=== PATIENT | female | born 1990 | race African-American/Black ===

== ENCOUNTER 2018-09-14 16:04 | Inpatient (IN) | payer OTHER ==
[2018-09-14 18:41] VITALS: BMI 25.2
--- NOTE | 2018-09-14 19:25 | HP ---
"CIWA Score Nausea/Vomitin-Mild Nausea/No Vomiting Muscle Tremors: None Anxiety: 1-Mildly Anxious Agitation: 1-Slight > Activity Paroxysmal Sweats: No Perspiration Orientation: 0-Oriented Tacttile Disturbances: 0-None Auditory Disturbances: 0-None Visual Disturbances: 0-None Headache: 2-Mild ((L) temporal area.) CIWA-Ar Total Score: 5 - Admission Criteria OASAS Guidelines: Admission for Medically Managed Detox: Requires at least one of the followin. CIWA greater than 12 2. Seizures within the past 24 hours 3. Delirium tremens within the past 24 hours 4. Hallucinations within the past 24 hours 5. Acute intervention needed for co occurring medical disorder 6. Acute intervention needed for co occurring psychiatric disorder 7. Severe withdrawal that cannot be handled at a lower level of care (continued vomiting, continued diarrhea, abnormal vital signs) requiring intravenous medication and/or fluids 8. Patient presents the following: None of the above Admission Criteria Met: Admission criteria not met Admission ROS [facility] Chief Complaint: Here for treatment for alcohol, cocaine and marijuana Allergies/Adverse Reactions: Allergies Allergy/AdvReac Type Severity Reaction Status Date / Time No Known Allergies Allergy Verified 09/14/18 18:29 History of Present Illness: 27 yo presents with hx alcohol, marijuana, and cocaine use disorder requesting detox. Hospitalized 09/12/18 @ [facility] for detox and mental health reasons. States discharged today and here for continuity of care. States received no medications while hospitalized. Has tried stopping on own but unable to maintain sobriety longer than 3 days. Alcohol use since age 24. States current use is 1-2 pints daily x past 6 months. Last drink 09/12. Marijuana use since age 13. Last use 09/12. Cocaine use since age 24. Last use 09/12. Utox: SCOT, THC HCG: Neg Presently c/o nausea, headache, rocking, and increased anxiety. Denies seizures or overdoses. Hx: Blackouts - 09/10/18. PMHx: Visual changes, SOB w/ exertion, PPD+ w/ tx w/ INH & B6 @ age 8/10. MHHx: Insomnia, anxiety, depression, mood disorder. Last took Seroquel 250 mg PO earlier today. Last took unknown medications 3 months ago. Denies thoughts of harming self or others. Encouraged to obtain a PCP and MH Provider upon discharge. Search Terms: Leigh Newsome, 1990 Search Date: 09/14/2018 07:27:51 PM The Drug Utilization Report below displays all of the controlled substance prescriptions, if any, that your patient has filled in the last twelve months. The information displayed on this report is compiled from pharmacy submissions to the Department, and accurately reflects the information as submitted by the pharmacies. This report was requested by: Lizbeth Hawk | Reference #: [id number] There are no results for the search terms that you entered. Search Terms: Leigh Newsome, 1990 Search Date: 09/14/2018 07:28:29 PM States Searched: [place], [place], [place], [place], [place], [place], [place] The Drug Utilization Report below displays the controlled substance prescriptions, if any, that were dispensed in the indicated state(s). The information displayed on this report is compiled from requests submitted to other states' PMPs, and accurately reflects the information as returned by them. Blank guevara indicate data not provided by other state. This report was requested by: Lizbeth Hawk | Reference #: [id number] Exam Limitations: No Limitations - Ebola screening Have you traveled outside of the country in the last 21 days: No Have you had contact with anyone from an Ebola affected area: No Have you been sick,other than usual withdrawal symptoms: No (Denies recent exposure to measles) Do you have a fever: No - Review of Systems Constitutional: Changes in sleep (Dificulty falling asleep. States was taking Seroquel.) EENT: reports: Blurred Vision (Occ blurred vision and color distortion in (K) eye), Other (Deviated nasal septum) Respiratory: reports: SOB with Exertion (Stairs, walking) Cardiac: reports: No Symptoms Reported GI: reports: Nausea (X past 6 hours), Indigestion (Acid reflux - controlled w/ diet) : reports: No Symptoms Reported Musculoskeletal: reports: No Symptoms Reported Integumentary: reports: No Symptoms Reported Neuro: reports: Headache (Mild (L) temporal) Endocrine: reports: No Symptoms Reported Hematology: reports: Anemia (Low iron and vitamin d) Psychiatric: reports: Judgement Intact, Orientated x3, Anxious, Depressed ( Denies thoughts of harming self or others.) Patient History - PPD History Previous Implant?: Yes Documented Results: Positive w/o proof (States treated w/ INH & B6 @ age 8/10.) Implanted On Prior R Admission?: No PPD to be Administered?: No - Reproductive History Patient is a Female of Child Bearing Age (11 -55 yrs old): Yes Last Menstrual Period: 08/29/18 Patient : No - Smoking Cessation Smoking history: Current every day smoker Have you smoked in the past 12 months: Yes Aproximately how many cigarettes per day: 10 Hx Chewing Tobacco Use: No Initiated information on smoking cessation: Yes 'Breaking Loose' booklet given: 09/14/18 - Substance & Tx. History Hx Alcohol Use: Yes Hx Substance Use: Yes Substance Use Type: Alcohol, Cocaine, Marijuana Hx Substance Use Treatment: No (Tried stopping on own,) - Substances abused Cocaine Substance route: Inhalation Frequency: 1-3 times last 30 days Amount used: 60 dollars Age of first use: 24 Date of last use: 09/12/18 Marijuana/Hashish Substance route: Smoking Frequency: 3-6 times per week Amount used: 100 dollars Age of first use: 13 Date of last use: 09/12/18 Alcohol Substance route: Oral Frequency: Daily Amount used: 1 to 2 pint of anything' Age of first use: 24 Date of last use: 09/12/18 Admission Physical Exam [facility] - Vital Signs Vital Signs: Vital Signs - 24 hr 09/14/18 18:26 Temperature 97.7 F Pulse Rate 85 Respiratory 20 Rate - Physical General Appearance: Yes: Nourished, Anxious HEENTM: Yes: EOMI, Hearing grossly Normal, Normocephalic, Normal Voice, MACK, Pharynx Normal, Other (perforated nasal septum) Respiratory: Yes: Lungs Clear (O2 Sat = 99), Normal Breath Sounds, No Respiratory Distress Neck: Yes: No masses,lesions,Nodules, Supple Breast: Yes: Breast Exam Deferred Cardiology: Yes: Regular Rhythm, Regular Rate, S1, S2 Abdominal: Yes: Non Tender, Soft, Hernia (Slight supra-umbilical bulge - soft, reducible) Genitourinary: Yes: Within Normal Limits Back: Yes: Normal Inspection Musculoskeletal: Yes: full range of Motion, Gait Steady Extremities: Yes: Normal Capillary Refill, Normal Range of Motion Neurological: Yes: 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 NML intact, Fully Oriented, Alert, Motor Strength 5/5 Integumentary: Yes: Normal Color, Dry, Warm Lymphatic: Yes: Within Normal Limits - Diagnostic (1) Severe alcohol use disorder, in early remission Current Visit: Yes Status: Acute (2) Cannabis dependence, uncomplicated Current Visit: Yes Status: Chronic (3) Nicotine dependence, uncomplicated Current Visit: Yes Status: Chronic Qualifiers: Nicotine product type: cigarettes Qualified Code(s): F17.210 - Nicotine dependence, cigarettes, uncomplicated (4) Cocaine dependence, uncomplicated Current Visit: Yes Status: Chronic (5) Abdominal hernia Current Visit: Yes Status: Chronic Qualifiers: Hernia type: unspecified Obstruction and gangrene presence: without obstruction or gangrene Recurrence: not specified as recurrent Qualified Code(s): K46.9 - Unspecified abdominal hernia without obstruction or gangrene (6) History of positive PPD Current Visit: Yes Status: Chronic Cleared for Admission [facility] - Detox or Rehab Claeared for Rehab Admission: Yes Breathalyzer - Breathalyzer Breathalyzer: 0 Urine Drug Screen - Test Device Lot number: [id number] Expiration date: 07/04/20 - Control Is test valid?: Yes - Results Drug screen NEGATIVE: No Urine drug screen results: THC-Marijuana, SCOT-Cocaine Inpatient Rehab Admission - Rehab Decision to Admit Inpatient rehab admission?: Yes - Initial Determination Are CD services needed?: Yes Free of communicable disease: Yes Not in need of hospitalization: Yes - Rehab Admission Criteria Previous failed treatment: Yes Poor recovery environment: Yes Comorbidities: Yes Lacks judgement: No Patient is meeting Inpatient Rehab admission criteria:: Yes"
[2018-09-14] MEDS ORDERED: ACETAMINOPHEN 325 MG TABLET (FP) PO PRN (20:17)
[2018-09-14] MEDS ORDERED: P-EPHED 60MG/TRIPROLIDI 2.5MG TABLET PO PRN (20:17)
[2018-09-14] MEDS ORDERED: MENTHOL/PHENOL 1 EACH UD MM PRN (20:17)
[2018-09-14] MEDS ORDERED: MAG HYDROX/AL HYDROX/SIMETH 30 ML UNIT-DOSE CUP PO PRN (20:17)
[2018-09-14] MEDS ORDERED: guaiFENesin 200 MG/10 ML 10 ML UNIT-DOSE CUPS PO PRN (20:17)
[2018-09-14] MEDS ORDERED: LOPERAMIDE HCL 2 MG CAPSULE PO PRN (20:17)
[2018-09-14] MEDS ORDERED: MAGNESIUM HYDROX 2400MG/30ML ORAL SUSPENSION 30 ML CUP PO PRN (20:17)
[2018-09-14] MEDS ORDERED: MAGNESIUM CITRATE 300 ML BOTTLE PO PRN (20:17)
[2018-09-14] MEDS: hydrOXYzine PAMOATE 25 MG CAPSULE (FP) PO PRN (22:27)
[2018-09-14] MEDS: MELATONIN 5 MG TABLETS PO PRN (22:27)
[2018-09-14] MEDS: THIAMINE HCL 100 MG TABLET (FP) PO SCH (22:28)
[2018-09-15] MEDS: NICOTINE 14 MG/24 HOURS TOPICAL PATCH TD SCH (09:58)
[2018-09-15] MEDS: hydrOXYzine PAMOATE 25 MG CAPSULE (FP) PO PRN ×3 (09:58→21:09)
[2018-09-15] MEDS: PRENATAL VITAMINS W/ FOLIC ACID TABLET (FP) PO SCH (09:58)
[2018-09-15] MEDS: NICOTINE POLACRILEX 2 MG GUM BC PRN ×3 (09:59→21:09)
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
[2018-09-15 12:36] LABS: ALBUMIN 3.1 g/dl (3.4-5.0); BILIRUBIN,TOTAL 0.2 mg/dL (0.2-1); BLOOD UREA NITROGEN 7.3 mg/dL (7-18); CALCIUM 8.7 mg/dL (8.5-10.1); CREATININE 0.8 mg/dL (0.55-1.3); POTASSIUM 3.9 mmol/L (3.5-5.1); TOT PROT 6.6 g/dl (6.4-8.2)
[2018-09-15 12:46] LABS: HEMATOCRIT 29.8 % (32.4-45.2); MCH 20.9 pg (25.7-33.7); MCHC 30.1 g/dl (32.0-36.0); MEAN CELL VOLUME 69.4 fl (80-96); MEAN PLT VOLUME 8.2 fl (7.5-11.1); PLATELET COUNT 360 K/MM3 (134-434); RBC 4.29 M/mm3 (3.60-5.2); RDW 19.1 % (11.6-15.6); WHITE BLOOD COUNT 6.3 K/mm3 (4.0-10.0)
[2018-09-15 13:03] LABS: EPI CELLS 20.4 /HPF (0-5/HPF); HYALINE CASTS 6 /lpf (0-8); URINE APPEARANCE CLOUDY; URINE BACTERIA 975.9 /hpf (NEGATIVE); URINE BILIRUBIN NEGATIVE (NEGATIVE); URINE COLOR YELLOW; URINE GLUCOSE (UA) NEGATIVE (NEGATIVE); URINE KETONE NEGATIVE (NEGATIVE); URINE LEUK ESTERASE 1+ (NEGATIVE); URINE NITRITE NEGATIVE (NEGATIVE); URINE PROTEIN NEGATIVE (NEGATIVE); URINE RBC 1 /hpf (0-4); URINE UROBILINOGEN 0.2 mg/dL (0.2-1.0); URINE WBC 37 /hpf (0-5)
[2018-09-15 13:33] LABS: YEAST NONE SEEN (NEGATIVE)
[2018-09-15] MEDS: THIAMINE HCL 100 MG TABLET (FP) PO SCH (21:08)
[2018-09-15] MEDS: MELATONIN 5 MG TABLETS PO PRN (21:09)
[2018-09-15] MEDS ORDERED: QUEtiapine FUMARATE 100 MG TABLET (FP) PO SCH (22:00)
[2018-09-16] MEDS: hydrOXYzine PAMOATE 25 MG CAPSULE (FP) PO PRN ×2 (06:27→11:01)
--- NOTE | 2018-09-16 09:31 | EKG ---
Test Reason : Blood Pressure : / mmHG Vent. Rate : 067 BPM Atrial Rate : 067 BPM P-R Int : 152 ms QRS Dur : 102 ms QT Int : 402 ms P-R-T Axes : 040 067 054 degrees QTc Int : 424 ms NORMAL SINUS RHYTHM MINIMAL VOLTAGE CRITERIA FOR LVH, MAY BE NORMAL VARIANT BORDERLINE ECG NO PREVIOUS ECGS AVAILABLE Confirmed by TAYLA MANNING, MCKENZIE ([id number]) on 09/16/2018 9:31:44 AM Referred By: Confirmed By:MCKENZIE BOURNE MD
[2018-09-16] MEDS: NICOTINE 14 MG/24 HOURS TOPICAL PATCH TD SCH (09:43)
[2018-09-16] MEDS: PRENATAL VITAMINS W/ FOLIC ACID TABLET (FP) PO SCH (09:44)
[2018-09-16] MEDS: NICOTINE POLACRILEX 2 MG GUM BC PRN ×2 (09:44→17:59)
[2018-09-16] MEDS: IBUPROFEN 400 MG TABLET (FP) PO PRN (14:44)
--- NOTE | 2018-09-16 16:51 | PN ---
Psychiatric Progress Note Vital Signs: Vital Signs Period Temp Pulse Resp BP Sys/Garnica Pulse Ox Last 24 Hr 97.0 F 64 16-18 109/66 Date of Session: 09/16/18 Chief Complaint:: " I feel irritable, restless and am having difficulty sleeping. HPI: Patient admitted to [facility] for alcohol, marijuana and cocaine dependence co-morbid bipolar disorder. ROS: Patient is coherent, alert and oriented X3. Current Medications: Active Medications Generic Name Dose Route Start Last Admin Trade Name Freq PRN Reason Stop Dose Admin Acetaminophen 650 mg 09/14/18 20:17 Tylenol - PO Q4H PRN FEVER Al Hydroxide/Mg Hydroxide 30 ml 09/14/18 20:17 Mylanta Oral Suspension - PO Q6H PRN DYSPEPSIA Eucalyptus/Menthol/Phenol/Sorbitol 1 each 09/14/18 20:17 Cepastat Lozenge - MM Q4H PRN SORE THROAT Guaifenesin 10 ml 09/14/18 20:17 Robitussin - PO Q6H PRN COUGH Hydroxyzine Pamoate 50 mg 09/16/18 11:03 Vistaril - PO Q4H PRN AGITATION Ibuprofen 400 mg 09/14/18 20:17 09/16/18 14:44 Motrin - PO 400 mg Q6H PRN Administration Pain level 4-6 Loperamide HCl 4 mg 09/14/18 20:17 Imodium - PO Q6H PRN DIARRHEA Magnesium Citrate 300 ml 09/14/18 20:17 Citroma - PO Q48H PRN CONSTIPATION Magnesium Hydroxide 30 ml 09/14/18 20:17 Milk Of Magnesia - PO DAILY PRN CONSTIPATION Melatonin 5 mg 09/14/18 22:00 09/15/18 21:09 Melatonin PO 5 mg HS PRN Administration INSOMNIA Nicotine 14 mg 09/15/18 10:00 09/16/18 09:43 Nicoderm Patch - TD 14 mg DAILY VIOLET Administration Nicotine Polacrilex 2 mg 09/14/18 20:17 09/16/18 09:44 Nicorette Gum - BC 2 mg Q2H PRN Administration NICOTINE REPLACEMENT RX Multivit/Folic Acid/Iron 1 tab 09/15/18 10:00 09/16/18 09:44 Vitamins (Sjr) - PO 1 tab DAILY VIOLET Administration Pseudoephedrine/Triprolidine 1 combo 09/14/18 20:17 Actifed - PO TID PRN NASAL CONGESTION Quetiapine Fumarate 200 mg 09/16/18 22:00 Seroquel - PO HS VIOLET Thiamine HCl 100 mg 09/14/18 22:00 09/15/18 21:08 Vitamin B1 - PO 100 mg HS VIOLET Administration Medication(s) Change(s): Yes. Current Side Effect: No Lab tests ordered: No Lab tests reviewed: Yes Provider note:: Patient able to tolerate seroquel 100mg HS. She reports accepting seroquel 200mg in the past. She currently reports increase irritability, restlessness, and difficulty sleeping. No psychosis noted. Patient calm and cooperative while speaking to narrative writer with nurse present. Will d/c seroquel 100mg and order Seroquel 200mg HS. Benefits and side effects discussed. Verbal consent given. Total face to face time:: 25 Mental Status Exam - Mental Status Exam Alert and Oriented to: Time, Place, Person Cognitive Function: Good Patient Appearance: Well Groomed Mood: Euthymic Affect: Appropriate Patient Behavior: Cooperative Speech Pattern: Appropriate Voice Loudness: Normal Thought Process: Goal Oriented Thought Disorder: Not Present Hallucinations: Denies Suicidal Ideation: Denies Homicidal Ideation: Denies Insight/Judgement: Poor Sleep: Poorly Appetite: Fair Muscle strength/Tone: Normal Gait/Station: Normal Psychiatric Treatment Plan - Problem List (1) Substance induced mood disorder Current Visit: Yes (2) Severe alcohol use disorder, in early remission Current Visit: Yes (3) Cannabis dependence, uncomplicated Current Visit: Yes (4) Cocaine dependence, uncomplicated Current Visit: Yes (5) Bipolar disorder Current Visit: Yes (6) Schizoaffective disorder Current Visit: Yes (7) Substance-induced sleep disorder Current Visit: Yes
[2018-09-16] MEDS: hydrOXYzine PAMOATE 50 MG CAPSULE (FP) PO PRN ×2 (17:59→21:37)
[2018-09-16] MEDS: QUEtiapine FUMARATE 200 MG TABLET PO SCH (21:36)
[2018-09-16] MEDS: MELATONIN 5 MG TABLETS PO PRN (21:37)
[2018-09-16] MEDS: THIAMINE HCL 100 MG TABLET (FP) PO SCH (21:37)
[2018-09-17] MEDS: hydrOXYzine PAMOATE 50 MG CAPSULE (FP) PO PRN ×3 (06:41→21:32)
[2018-09-17] MEDS: NICOTINE POLACRILEX 2 MG GUM BC PRN ×2 (06:42→21:32)
[2018-09-17] MEDS: PRENATAL VITAMINS W/ FOLIC ACID TABLET (FP) PO SCH (10:04)
[2018-09-17] MEDS: NICOTINE 14 MG/24 HOURS TOPICAL PATCH TD SCH (10:04)
[2018-09-17] MEDS: MELATONIN 5 MG TABLETS PO PRN (21:32)
[2018-09-17] MEDS: THIAMINE HCL 100 MG TABLET (FP) PO SCH (21:32)
[2018-09-17] MEDS: QUEtiapine FUMARATE 200 MG TABLET PO SCH (21:32)
[2018-09-18] MEDS: hydrOXYzine PAMOATE 50 MG CAPSULE (FP) PO PRN ×4 (06:49→21:30)
[2018-09-18] MEDS: NICOTINE POLACRILEX 2 MG GUM BC PRN ×4 (06:50→21:29)
[2018-09-18] MEDS: IBUPROFEN 400 MG TABLET (FP) PO PRN ×2 (06:51→21:29)
[2018-09-18] MEDS: NICOTINE 14 MG/24 HOURS TOPICAL PATCH TD SCH (10:01)
[2018-09-18] MEDS: PRENATAL VITAMINS W/ FOLIC ACID TABLET (FP) PO SCH (10:01)
--- NOTE | 2018-09-18 12:55 | PN ---
[facility] Progress Note Note: Labs reviewed with patient. Patient requested to have HIV testing done. Order placed for HIV test to be drawn tomorrow morning. Patient has known hx of anemia. Laboratory Tests 09/14/18 09/15/18 09/15/18 19:17 08:15 08:15 WBC 6.3 RBC 4.29 Hgb 9.0 L Hct 29.8 L MCV 69.4 L MCH 20.9 L MCHC 30.1 L RDW 19.1 H Plt Count 360 MPV 8.2 Sodium 141 Potassium 3.9 Chloride 108 H Carbon Dioxide 28 Anion Gap 5 L BUN 7.3 Creatinine 0.8 Est GFR (CKD-EPI)AfAm 116.28 Est GFR (CKD-EPI)NonAf 100.33 Random Glucose 101 Calcium 8.7 Total Bilirubin 0.2 AST 14 L ALT 20 Alkaline Phosphatase 47 Total Protein 6.6 Albumin 3.1 L Urine Color Urine Appearance Urine pH Ur Specific R[place]y Urine Protein Urine Glucose (UA) Urine Ketones Urine Blood Urine Nitrite Urine Bilirubin Urine Urobilinogen Ur Leukocyte Esterase Urine WBC (Auto) Urine RBC (Auto) Urine Casts (Auto) U Epithel Cells (Auto) Urine Bacteria (Auto) Urine Yeast (Auto) POC Urine HCG, Qual Negative RPR Titer 09/15/18 09/15/18 08:15 09:30 WBC RBC Hgb Hct MCV MCH MCHC RDW Plt Count MPV Sodium Potassium Chloride Carbon Dioxide Anion Gap BUN Creatinine Est GFR (CKD-EPI)AfAm Est GFR (CKD-EPI)NonAf Random Glucose Calcium Total Bilirubin AST ALT Alkaline Phosphatase Total Protein Albumin Urine Color Yellow Urine Appearance Cloudy Urine pH 6.0 Ur Specific [place] 1.021 Urine Protein Negative Urine Glucose (UA) Negative Urine Ketones Negative Urine Blood Negative Urine Nitrite Negative Urine Bilirubin Negative Urine Urobilinogen 0.2 Ur Leukocyte Esterase 1+ H Urine WBC (Auto) 37 Urine RBC (Auto) 1 Urine Casts (Auto) 6 U Epithel Cells (Auto) 20.4 Urine Bacteria (Auto) 975.9 Urine Yeast (Auto) None seen POC Urine HCG, Qual RPR Titer Nonreactive Vital Signs Temperature 97.8 F 09/18/18 07:20 Pulse Rate 98 H 09/18/18 07:20 Respiratory Rate 18 09/18/18 07:20 Blood Pressure 114/81 09/18/18 07:20 O2 Sat by Pulse Oximetry (%)
[2018-09-18] MEDS: FERROUS SO4 325 MG TABLET (FP) PO SCH (16:58)
[2018-09-18] MEDS: QUEtiapine FUMARATE 200 MG TABLET PO SCH (21:28)
[2018-09-18] MEDS: MELATONIN 5 MG TABLETS PO PRN (21:29)
[2018-09-18] MEDS: THIAMINE HCL 100 MG TABLET (FP) PO SCH (21:29)
[2018-09-19] MEDS: hydrOXYzine PAMOATE 50 MG CAPSULE (FP) PO PRN ×4 (06:32→21:31)
[2018-09-19] MEDS: NICOTINE POLACRILEX 2 MG GUM BC PRN ×4 (06:33→17:47)
[2018-09-19] MEDS: FERROUS SO4 325 MG TABLET (FP) PO SCH ×2 (08:23→17:46)
[2018-09-19] MEDS: NICOTINE 14 MG/24 HOURS TOPICAL PATCH TD SCH (09:19)
[2018-09-19] MEDS: PRENATAL VITAMINS W/ FOLIC ACID TABLET (FP) PO SCH (09:21)
[2018-09-19] MEDS ORDERED: COLLOIDAL OATMEAL 1 BAR EACH TP PRN (11:23)
[2018-09-19] MEDS: QUEtiapine FUMARATE 200 MG TABLET PO SCH (21:31)
[2018-09-19] MEDS: THIAMINE HCL 100 MG TABLET (FP) PO SCH (21:31)
[2018-09-20] MEDS: hydrOXYzine PAMOATE 50 MG CAPSULE (FP) PO PRN ×3 (06:30→21:20)
[2018-09-20] MEDS: FERROUS SO4 325 MG TABLET (FP) PO SCH ×2 (07:41→17:45)
[2018-09-20] MEDS: PRENATAL VITAMINS W/ FOLIC ACID TABLET (FP) PO SCH (09:56)
[2018-09-20] MEDS: NICOTINE 21 MG/24 HOURS TOPICAL PATCH TD SCH (09:56)
[2018-09-20] MEDS: NICOTINE POLACRILEX 2 MG GUM BC PRN (09:58)
[2018-09-20] MEDS: IBUPROFEN 400 MG TABLET (FP) PO PRN (11:09)
[2018-09-20] MEDS: NICOTINE POLACRILEX 4 MG GUM BUC PRN (14:03)
--- NOTE | 2018-09-20 15:04 | PN ---
[facility] Progress Note Note: pt states that she has a h/o umbilical hernia and now with some pain. O Vital Signs - 24 hr 09/20/18 09/20/18 00:30 07:28 Temperature 97.7 F Pulse Rate 71 Respiratory 18 18 Rate Blood Pressure 103/78 abd- soft NT, minimal hernia mid abd wall, minimal pain a/p hernia- no evidence for herniation, follow for now pt to f/u with PCP and surgery consult at discharge
[2018-09-20] MEDS: QUEtiapine FUMARATE 200 MG TABLET PO SCH (21:20)
[2018-09-20] MEDS: THIAMINE HCL 100 MG TABLET (FP) PO SCH (21:20)
[2018-09-20] MEDS: MELATONIN 5 MG TABLETS PO PRN (21:21)
[2018-09-21] MEDS: FERROUS SO4 325 MG TABLET (FP) PO SCH ×2 (07:43→16:59)
[2018-09-21] MEDS: hydrOXYzine PAMOATE 50 MG CAPSULE (FP) PO PRN ×3 (07:43→21:25)
[2018-09-21] MEDS: IBUPROFEN 400 MG TABLET (FP) PO PRN (09:04)
[2018-09-21] MEDS: PRENATAL VITAMINS W/ FOLIC ACID TABLET (FP) PO SCH (09:04)
[2018-09-21] MEDS: NICOTINE 21 MG/24 HOURS TOPICAL PATCH TD SCH (09:04)
[2018-09-21] MEDS: NICOTINE POLACRILEX 4 MG GUM BUC PRN ×3 (09:05→17:00)
--- NOTE | 2018-09-21 11:20 | PN ---
Psychiatric Progress Note Vital Signs: Vital Signs Period Temp Pulse Resp BP Sys/Garnica Pulse Ox Last 24 Hr 97.8 F 80 18-18 99/65 Date of Session: 09/21/18 Chief Complaint:: " I feel anxious and restless. The vistaril is not working." HPI: Patient admitted to [facility] for alcohol, marijuana and cocaine dependence co-morbid bipolar disorder. ROS: Patient is coherent, alert + Oriented X 3. Current Medications: Active Medications Generic Name Dose Route Start Last Admin Trade Name Freq PRN Reason Stop Dose Admin Acetaminophen 650 mg 09/14/18 20:17 Tylenol - PO Q4H PRN FEVER Al Hydroxide/Mg Hydroxide 30 ml 09/14/18 20:17 Mylanta Oral Suspension - PO Q6H PRN DYSPEPSIA Colloidal Oatmeal 1 applic 09/19/18 11:23 09/19/18 17:45 Aveeno Soap - TP 1 applic DAILY PRN Administration HYGEINE Eucalyptus/Menthol/Phenol/Sorbitol 1 each 09/14/18 20:17 Cepastat Lozenge - MM Q4H PRN SORE THROAT Ferrous Sulfate 325 mg 09/18/18 17:30 09/21/18 07:43 Feosol - PO 325 mg BIDWM VIOLET Administration Guaifenesin 10 ml 09/14/18 20:17 Robitussin - PO Q6H PRN COUGH Hydroxyzine Pamoate 50 mg 09/16/18 11:03 09/21/18 07:43 Vistaril - PO 50 mg Q4H PRN Administration AGITATION Ibuprofen 400 mg 09/14/18 20:17 09/21/18 09:04 Motrin - PO 400 mg Q6H PRN Administration Pain level 4-6 Loperamide HCl 4 mg 09/14/18 20:17 Imodium - PO Q6H PRN DIARRHEA Magnesium Citrate 300 ml 09/14/18 20:17 Citroma - PO Q48H PRN CONSTIPATION Magnesium Hydroxide 30 ml 09/14/18 20:17 Milk Of Magnesia - PO DAILY PRN CONSTIPATION Melatonin 5 mg 09/14/18 22:00 09/20/18 21:21 Melatonin PO 5 mg HS PRN Administration INSOMNIA Nicotine 21 mg 09/20/18 10:00 09/21/18 09:04 Nicoderm Patch - TD 21 mg DAILY VIOLET Administration Nicotine Polacrilex 4 mg 09/20/18 10:32 09/21/18 09:05 Nicorette Gum - BUC 4 mg Q2H PRN Administration NICOTINE REPLACEMENT RX Multivit/Folic Acid/Iron 1 tab 09/15/18 10:00 09/21/18 09:04 Vitamins (Sjr) - PO 1 tab DAILY VIOLET Administration Pseudoephedrine/Triprolidine 1 combo 09/14/18 20:17 Actifed - PO TID PRN NASAL CONGESTION Quetiapine Fumarate 200 mg 09/16/18 22:00 09/20/18 21:20 Seroquel - PO 200 mg HS VIOLET Administration Thiamine HCl 100 mg 09/14/18 22:00 09/20/18 21:20 Vitamin B1 - PO 100 mg HS VIOLET Administration Medication(s) Change(s): Yes. Will add gabapentin 300mg TID. Current Side Effect: No Lab tests ordered: No Lab tests reviewed: Yes Provider note:: Patient reports worsening anxiety and restlessness. States the vistaril is not effective and is willing to try an alternative medication. Patient agreeable to accepting gabapentin 300mg TID. Patient also educated on the importance of utilizing her coping mechanisms to help manage her anxiety. Patient satisifed and receptive to feedback. Benefits and side effects discussed. Verbal consent given. Total face to face time:: 25 Mental Status Exam - Mental Status Exam Alert and Oriented to: Time, Place, Person Cognitive Function: Good Patient Appearance: Well Groomed Mood: Anxious, Euthymic Affect: Mood Congruent Patient Behavior: Cooperative Speech Pattern: Appropriate Voice Loudness: Normal Thought Process: Goal Oriented Thought Disorder: Not Present Hallucinations: Denies Suicidal Ideation: Denies Homicidal Ideation: Denies Insight/Judgement: Poor Sleep: Poorly Appetite: Fair Muscle strength/Tone: Normal Gait/Station: Normal Psychiatric Treatment Plan - Problem List (1) Substance induced mood disorder Current Visit: Yes (2) Severe alcohol use disorder, in early remission Current Visit: Yes (3) Cannabis dependence, uncomplicated Current Visit: Yes (4) Cocaine dependence, uncomplicated Current Visit: Yes (5) Bipolar disorder Current Visit: Yes (6) Schizoaffective disorder Current Visit: Yes (7) Substance-induced sleep disorder Current Visit: Yes
[2018-09-21] MEDS: GABAPENTIN 300 MG CAPSULE (FP) PO SCH ×2 (13:49→21:25)
[2018-09-21] MEDS ORDERED: PT OWN MED DRAWER 7, Y5N ONE (13:52)
[2018-09-21] MEDS: THIAMINE HCL 100 MG TABLET (FP) PO SCH (21:24)
[2018-09-21] MEDS: QUEtiapine FUMARATE 200 MG TABLET PO SCH (21:25)
[2018-09-21] MEDS: MELATONIN 5 MG TABLETS PO PRN (21:26)
[2018-09-22] MEDS: GABAPENTIN 300 MG CAPSULE (FP) PO SCH ×3 (06:41→21:07)
[2018-09-22] MEDS: FERROUS SO4 325 MG TABLET (FP) PO SCH ×2 (07:25→16:35)
--- NOTE | 2018-09-22 08:26 | PN ---
[facility] Progress Note Note: Patient c/o rash to left antecubital area with mild itching. Denies any recent changes in soap, detergent. Vital Signs Temperature 97.8 F 09/22/18 07:00 Pulse Rate 75 09/22/18 07:00 Respiratory Rate 16 09/22/18 07:00 Blood Pressure 113/79 09/22/18 07:00 O2 Sat by Pulse Oximetry (%) Laboratory Tests 09/14/18 09/15/18 09/15/18 19:17 08:15 08:15 WBC 6.3 RBC 4.29 Hgb 9.0 L Hct 29.8 L MCV 69.4 L MCH 20.9 L MCHC 30.1 L RDW 19.1 H Plt Count 360 MPV 8.2 Sodium 141 Potassium 3.9 Chloride 108 H Carbon Dioxide 28 Anion Gap 5 L BUN 7.3 Creatinine 0.8 Est GFR (CKD-EPI)AfAm 116.28 Est GFR (CKD-EPI)NonAf 100.33 Random Glucose 101 Calcium 8.7 Total Bilirubin 0.2 AST 14 L ALT 20 Alkaline Phosphatase 47 Total Protein 6.6 Albumin 3.1 L Urine Color Urine Appearance Urine pH Ur Specific Alba Urine Protein Urine Glucose (UA) Urine Ketones Urine Blood Urine Nitrite Urine Bilirubin Urine Urobilinogen Ur Leukocyte Esterase Urine WBC (Auto) Urine RBC (Auto) Urine Casts (Auto) U Epithel Cells (Auto) Urine Bacteria (Auto) Urine Yeast (Auto) POC Urine HCG, Qual Negative RPR Titer HIV 1&2 Antibody Screen HIV P24 Antigen 09/15/18 09/15/18 09/19/18 08:15 09:30 08:55 WBC RBC Hgb Hct MCV MCH MCHC RDW Plt Count MPV Sodium Potassium Chloride Carbon Dioxide Anion Gap BUN Creatinine Est GFR (CKD-EPI)AfAm Est GFR (CKD-EPI)NonAf Random Glucose Calcium Total Bilirubin AST ALT Alkaline Phosphatase Total Protein Albumin Urine Color Yellow Urine Appearance Cloudy Urine pH 6.0 Ur Specific Alba 1.021 Urine Protein Negative Urine Glucose (UA) Negative Urine Ketones Negative Urine Blood Negative Urine Nitrite Negative Urine Bilirubin Negative Urine Urobilinogen 0.2 Ur Leukocyte Esterase 1+ H Urine WBC (Auto) 37 Urine RBC (Auto) 1 Urine Casts (Auto) 6 U Epithel Cells (Auto) 20.4 Urine Bacteria (Auto) 975.9 Urine Yeast (Auto) None seen POC Urine HCG, Qual RPR Titer Nonreactive HIV 1&2 Antibody Screen Negative HIV P24 Antigen Negative PE: alert and oriented x 3 skin warm and dry mild macular-red rash to left antecubital area no visible lesions or lumps A/P: Contact Dermatitis Will start Hytone 0.5% cream BID x 7 days monitor clinically
[2018-09-22] MEDS: NICOTINE 21 MG/24 HOURS TOPICAL PATCH TD SCH (09:58)
[2018-09-22] MEDS: PRENATAL VITAMINS W/ FOLIC ACID TABLET (FP) PO SCH (09:59)
[2018-09-22] MEDS: hydrOXYzine PAMOATE 50 MG CAPSULE (FP) PO PRN ×3 (10:00→21:08)
[2018-09-22] MEDS ORDERED: HYDROCORTISONE 0.5% TOPICAL CREAM 30 GM TUBE TP SCH (10:00)
[2018-09-22] MEDS: TRIAMCINOLONE ACET 0.025% CREAM 15 GM TUBE TP SCH ×2 (10:03→21:08)
[2018-09-22] MEDS ORDERED: PT OWN MED DRAWER 7, Y5N ONE (10:03)
[2018-09-22] MEDS: NICOTINE POLACRILEX 4 MG GUM BUC PRN ×2 (10:04→14:18)
--- NOTE | 2018-09-22 11:01 | PN ---
Psychiatric Progress Note Vital Signs: Vital Signs Period Temp Pulse Resp BP Sys/Garnica Pulse Ox Last 24 Hr 97.8 F 75 16-18 113/79 Date of Session: 09/22/18 Chief Complaint:: " I have trouble sleeping." HPI: Patient admitted [facility] for alcohol, marijuana and cocaine dependence co-morbid bipolar disorder. Patient reports difficulty sleeping. ROS: Patient is coherent, alert and oriented X3. Current Medications: Active Medications Generic Name Dose Route Start Last Admin Trade Name Freq PRN Reason Stop Dose Admin Acetaminophen 650 mg 09/14/18 20:17 Tylenol - PO Q4H PRN FEVER Al Hydroxide/Mg Hydroxide 30 ml 09/14/18 20:17 Mylanta Oral Suspension - PO Q6H PRN DYSPEPSIA Colloidal Oatmeal 1 applic 09/19/18 11:23 09/19/18 17:45 Aveeno Soap - TP 1 applic DAILY PRN Administration HYGEINE Eucalyptus/Menthol/Phenol/Sorbitol 1 each 09/14/18 20:17 Cepastat Lozenge - MM Q4H PRN SORE THROAT Ferrous Sulfate 325 mg 09/18/18 17:30 09/22/18 07:25 Feosol - PO 325 mg BIDWM VIOLET Administration Gabapentin 300 mg 09/21/18 14:00 09/22/18 06:41 Neurontin - PO 300 mg TID VIOLET Administration Guaifenesin 10 ml 09/14/18 20:17 Robitussin - PO Q6H PRN COUGH Hydroxyzine Pamoate 50 mg 09/16/18 11:03 09/22/18 10:00 Vistaril - PO 50 mg Q4H PRN Administration AGITATION Ibuprofen 400 mg 09/14/18 20:17 09/21/18 09:04 Motrin - PO 400 mg Q6H PRN Administration Pain level 4-6 Loperamide HCl 4 mg 09/14/18 20:17 Imodium - PO Q6H PRN DIARRHEA Magnesium Citrate 300 ml 09/14/18 20:17 Citroma - PO Q48H PRN CONSTIPATION Magnesium Hydroxide 30 ml 09/14/18 20:17 Milk Of Magnesia - PO DAILY PRN CONSTIPATION Melatonin 5 mg 09/14/18 22:00 09/21/18 21:26 Melatonin PO 5 mg HS PRN Administration INSOMNIA Nicotine 21 mg 09/20/18 10:00 09/22/18 09:58 Nicoderm Patch - TD 21 mg DAILY VIOLET Administration Nicotine Polacrilex 4 mg 09/20/18 10:32 09/22/18 10:04 Nicorette Gum - BUC 4 mg Q2H PRN Administration NICOTINE REPLACEMENT RX Multivit/Folic Acid/Iron 1 tab 09/15/18 10:00 09/22/18 09:59 Vitamins (Sjr) - PO 1 tab DAILY VIOLET Administration Pseudoephedrine/Triprolidine 1 combo 09/14/18 20:17 Actifed - PO TID PRN NASAL CONGESTION Quetiapine Fumarate 200 mg 09/16/18 22:00 09/21/18 21:25 Seroquel - PO 200 mg HS VIOLET Administration Thiamine HCl 100 mg 09/14/18 22:00 09/21/18 21:24 Vitamin B1 - PO 100 mg HS VIOLET Administration Triamcinolone Acetonide 1 gm 09/22/18 10:00 09/22/18 10:03 Aristocort 0.025% Cream - TP 09/29/18 09:59 1 applic BID VIOLET Administration Medication(s) Change(s): Yes. Will add Belsomra 10mg HS PRN. Current Side Effect: No Lab tests ordered: No Lab tests reviewed: Yes Provider note:: Patient reports difficulty sleeping. Patient agreeable to accepting belsomra 10mg HS PRN. Patient educated on the importance of sleep hygiene. Benefits and side effects discusssed. Verbal consent given. Total face to face time:: 20 Mental Status Exam - Mental Status Exam Alert and Oriented to: Time, Place, Person Cognitive Function: Good Patient Appearance: Well Groomed Mood: Euthymic Affect: Appropriate Patient Behavior: Appropriate, Cooperative Speech Pattern: Appropriate Voice Loudness: Normal Thought Process: Goal Oriented Thought Disorder: Not Present Hallucinations: Denies Suicidal Ideation: Denies Homicidal Ideation: Denies Insight/Judgement: Poor Sleep: Poorly Appetite: Fair Muscle strength/Tone: Normal Gait/Station: Normal Psychiatric Treatment Plan - Problem List (1) Substance induced mood disorder Current Visit: Yes (2) Severe alcohol use disorder, in early remission Current Visit: Yes (3) Cannabis dependence, uncomplicated Current Visit: Yes (4) Cocaine dependence, uncomplicated Current Visit: Yes (5) Bipolar disorder Current Visit: Yes (6) Schizoaffective disorder Current Visit: Yes (7) Substance-induced sleep disorder Current Visit: Yes
[2018-09-22] MEDS: QUEtiapine FUMARATE 200 MG TABLET PO SCH (21:07)
[2018-09-22] MEDS: THIAMINE HCL 100 MG TABLET (FP) PO SCH (21:07)
[2018-09-22] MEDS: SUVOREXANT 10 MG TABLET PO PRN (21:08)
[2018-09-22] MEDS: MELATONIN 5 MG TABLETS PO PRN (21:08)
[2018-09-23] MEDS: GABAPENTIN 300 MG CAPSULE (FP) PO SCH ×3 (06:58→21:29)
[2018-09-23] MEDS: FERROUS SO4 325 MG TABLET (FP) PO SCH ×2 (07:01→21:31)
[2018-09-23] MEDS ORDERED: PT OWN MED DRAWER 7, Y5N ONE (09:01)
[2018-09-23] MEDS: PRENATAL VITAMINS W/ FOLIC ACID TABLET (FP) PO SCH (09:44)
[2018-09-23] MEDS: NICOTINE 21 MG/24 HOURS TOPICAL PATCH TD SCH (09:44)
[2018-09-23] MEDS: TRIAMCINOLONE ACET 0.025% CREAM 15 GM TUBE TP SCH ×2 (09:45→21:31)
[2018-09-23] MEDS: NICOTINE POLACRILEX 4 MG GUM BUC PRN ×3 (09:45→21:31)
[2018-09-23] MEDS: hydrOXYzine PAMOATE 50 MG CAPSULE (FP) PO PRN ×2 (13:25→21:29)
[2018-09-23] MEDS: THIAMINE HCL 100 MG TABLET (FP) PO SCH (21:29)
[2018-09-23] MEDS: QUEtiapine FUMARATE 200 MG TABLET PO SCH (21:29)
[2018-09-23] MEDS: MELATONIN 5 MG TABLETS PO PRN (21:29)
[2018-09-23] MEDS: SUVOREXANT 10 MG TABLET PO PRN (21:31)
[2018-09-24] MEDS: GABAPENTIN 300 MG CAPSULE (FP) PO SCH ×3 (06:49→21:52)
[2018-09-24] MEDS: hydrOXYzine PAMOATE 50 MG CAPSULE (FP) PO PRN ×2 (06:50→21:52)
[2018-09-24] MEDS: FERROUS SO4 325 MG TABLET (FP) PO SCH ×2 (07:11→17:30)
[2018-09-24] MEDS: TRIAMCINOLONE ACET 0.025% CREAM 15 GM TUBE TP SCH ×2 (10:55→21:54)
[2018-09-24] MEDS: PRENATAL VITAMINS W/ FOLIC ACID TABLET (FP) PO SCH (10:55)
[2018-09-24] MEDS: NICOTINE 21 MG/24 HOURS TOPICAL PATCH TD SCH (10:55)
[2018-09-24] MEDS: THIAMINE HCL 100 MG TABLET (FP) PO SCH (21:52)
[2018-09-24] MEDS: QUEtiapine FUMARATE 200 MG TABLET PO SCH (21:52)
[2018-09-24] MEDS: MELATONIN 5 MG TABLETS PO PRN (21:53)
[2018-09-24] MEDS: SUVOREXANT 10 MG TABLET PO PRN (21:53)
[2018-09-24] MEDS: NICOTINE POLACRILEX 4 MG GUM BUC PRN (21:54)
[2018-09-25] MEDS: GABAPENTIN 300 MG CAPSULE (FP) PO SCH ×3 (06:43→21:42)
[2018-09-25] MEDS: PRENATAL VITAMINS W/ FOLIC ACID TABLET (FP) PO SCH (10:23)
[2018-09-25] MEDS: NICOTINE 21 MG/24 HOURS TOPICAL PATCH TD SCH (10:23)
[2018-09-25] MEDS: TRIAMCINOLONE ACET 0.025% CREAM 15 GM TUBE TP SCH ×2 (10:24→21:43)
[2018-09-25] MEDS: FERROUS SO4 325 MG TABLET (FP) PO SCH ×2 (10:24→17:35)
[2018-09-25] MEDS: hydrOXYzine PAMOATE 50 MG CAPSULE (FP) PO PRN ×2 (14:07→21:45)
[2018-09-25] MEDS: MELATONIN 5 MG TABLETS PO PRN (21:42)
[2018-09-25] MEDS: THIAMINE HCL 100 MG TABLET (FP) PO SCH (21:42)
[2018-09-25] MEDS: QUEtiapine FUMARATE 200 MG TABLET PO SCH (21:42)
[2018-09-25] MEDS: SUVOREXANT 10 MG TABLET PO PRN (21:45)
[2018-09-26] MEDS: hydrOXYzine PAMOATE 50 MG CAPSULE (FP) PO PRN ×3 (07:03→21:53)
[2018-09-26] MEDS: GABAPENTIN 300 MG CAPSULE (FP) PO SCH ×3 (07:03→21:51)
[2018-09-26] MEDS: FERROUS SO4 325 MG TABLET (FP) PO SCH ×2 (07:03→17:15)
[2018-09-26] MEDS: PRENATAL VITAMINS W/ FOLIC ACID TABLET (FP) PO SCH (09:22)
[2018-09-26] MEDS: NICOTINE 21 MG/24 HOURS TOPICAL PATCH TD SCH (09:22)
[2018-09-26] MEDS: TRIAMCINOLONE ACET 0.025% CREAM 15 GM TUBE TP SCH ×2 (09:23→22:01)
[2018-09-26] MEDS: NICOTINE POLACRILEX 4 MG GUM BUC PRN ×2 (12:55→17:15)
[2018-09-26] MEDS: QUEtiapine FUMARATE 200 MG TABLET PO SCH (21:51)
[2018-09-26] MEDS: THIAMINE HCL 100 MG TABLET (FP) PO SCH (21:51)
[2018-09-26] MEDS: MELATONIN 5 MG TABLETS PO PRN (21:51)
[2018-09-27] MEDS: GABAPENTIN 300 MG CAPSULE (FP) PO SCH ×3 (06:35→21:32)
[2018-09-27] MEDS: hydrOXYzine PAMOATE 50 MG CAPSULE (FP) PO PRN ×2 (06:36→19:01)
[2018-09-27] MEDS: FERROUS SO4 325 MG TABLET (FP) PO SCH ×2 (07:42→21:33)
[2018-09-27] MEDS: NICOTINE 21 MG/24 HOURS TOPICAL PATCH TD SCH (10:13)
[2018-09-27] MEDS: TRIAMCINOLONE ACET 0.025% CREAM 15 GM TUBE TP SCH ×2 (10:13→21:33)
[2018-09-27] MEDS: PRENATAL VITAMINS W/ FOLIC ACID TABLET (FP) PO SCH (10:13)
[2018-09-27] MEDS: NICOTINE POLACRILEX 4 MG GUM BUC PRN ×2 (13:03→21:33)
[2018-09-27] MEDS: QUEtiapine FUMARATE 200 MG TABLET PO SCH (21:32)
[2018-09-27] MEDS: THIAMINE HCL 100 MG TABLET (FP) PO SCH (21:32)
[2018-09-27] MEDS: MELATONIN 5 MG TABLETS PO PRN (21:32)
[2018-09-28] MEDS: hydrOXYzine PAMOATE 50 MG CAPSULE (FP) PO PRN ×4 (06:11→18:14)
[2018-09-28] MEDS: GABAPENTIN 300 MG CAPSULE (FP) PO SCH ×3 (06:11→21:29)
[2018-09-28] MEDS: FERROUS SO4 325 MG TABLET (FP) PO SCH ×2 (07:36→17:30)
[2018-09-28] MEDS: PRENATAL VITAMINS W/ FOLIC ACID TABLET (FP) PO SCH (10:23)
[2018-09-28] MEDS: NICOTINE 21 MG/24 HOURS TOPICAL PATCH TD SCH (10:23)
[2018-09-28] MEDS: TRIAMCINOLONE ACET 0.025% CREAM 15 GM TUBE TP SCH ×2 (10:23→21:30)
[2018-09-28] MEDS: NICOTINE POLACRILEX 4 MG GUM BUC PRN ×3 (10:27→18:14)
[2018-09-28] MEDS ORDERED: PT OWN MED DRAWER 7, Y5N ONE (12:19)
[2018-09-28] MEDS: THIAMINE HCL 100 MG TABLET (FP) PO SCH (21:29)
[2018-09-28] MEDS: QUEtiapine FUMARATE 200 MG TABLET PO SCH (21:29)
[2018-09-28] MEDS: MELATONIN 5 MG TABLETS PO PRN (21:30)
[2018-09-29] MEDS: hydrOXYzine PAMOATE 50 MG CAPSULE (FP) PO PRN ×3 (07:03→21:17)
[2018-09-29] MEDS: FERROUS SO4 325 MG TABLET (FP) PO SCH ×2 (07:03→17:30)
[2018-09-29] MEDS: GABAPENTIN 300 MG CAPSULE (FP) PO SCH ×3 (07:03→21:17)
[2018-09-29] MEDS: PRENATAL VITAMINS W/ FOLIC ACID TABLET (FP) PO SCH (10:41)
[2018-09-29] MEDS: NICOTINE 21 MG/24 HOURS TOPICAL PATCH TD SCH (10:41)
[2018-09-29] MEDS: THIAMINE HCL 100 MG TABLET (FP) PO SCH (21:16)
[2018-09-29] MEDS: QUEtiapine FUMARATE 200 MG TABLET PO SCH (21:17)
[2018-09-29] MEDS: MELATONIN 5 MG TABLETS PO PRN (21:17)
[2018-09-30] MEDS: GABAPENTIN 300 MG CAPSULE (FP) PO SCH ×3 (06:17→21:03)
[2018-09-30] MEDS: hydrOXYzine PAMOATE 50 MG CAPSULE (FP) PO PRN ×3 (06:17→21:05)
[2018-09-30] MEDS: FERROUS SO4 325 MG TABLET (FP) PO SCH ×2 (08:20→17:04)
[2018-09-30] MEDS: PRENATAL VITAMINS W/ FOLIC ACID TABLET (FP) PO SCH (09:56)
[2018-09-30] MEDS: NICOTINE 21 MG/24 HOURS TOPICAL PATCH TD SCH (09:56)
[2018-09-30] MEDS: NICOTINE POLACRILEX 4 MG GUM BUC PRN (13:20)
[2018-09-30] MEDS: QUEtiapine FUMARATE 200 MG TABLET PO SCH (21:04)
[2018-09-30] MEDS: THIAMINE HCL 100 MG TABLET (FP) PO SCH (21:04)
[2018-09-30] MEDS: MELATONIN 5 MG TABLETS PO PRN (21:05)
[2018-10-01] MEDS: hydrOXYzine PAMOATE 50 MG CAPSULE (FP) PO PRN ×3 (06:35→21:39)
[2018-10-01] MEDS: GABAPENTIN 300 MG CAPSULE (FP) PO SCH ×3 (06:35→21:38)
[2018-10-01] MEDS: FERROUS SO4 325 MG TABLET (FP) PO SCH ×2 (07:50→18:05)
[2018-10-01] MEDS: NICOTINE 21 MG/24 HOURS TOPICAL PATCH TD SCH (09:51)
[2018-10-01] MEDS: PRENATAL VITAMINS W/ FOLIC ACID TABLET (FP) PO SCH (09:52)
[2018-10-01] MEDS: NICOTINE POLACRILEX 4 MG GUM BUC PRN (13:57)
[2018-10-01] MEDS: THIAMINE HCL 100 MG TABLET (FP) PO SCH (21:38)
[2018-10-01] MEDS: QUEtiapine FUMARATE 200 MG TABLET PO SCH (21:38)
[2018-10-01] MEDS: MELATONIN 5 MG TABLETS PO PRN (21:39)
[2018-10-02] MEDS: GABAPENTIN 300 MG CAPSULE (FP) PO SCH ×3 (06:36→21:44)
[2018-10-02] MEDS: hydrOXYzine PAMOATE 50 MG CAPSULE (FP) PO PRN ×3 (06:36→21:45)
[2018-10-02] MEDS: FERROUS SO4 325 MG TABLET (FP) PO SCH ×2 (07:44→17:30)
[2018-10-02] MEDS: PRENATAL VITAMINS W/ FOLIC ACID TABLET (FP) PO SCH (09:25)
[2018-10-02] MEDS: NICOTINE 21 MG/24 HOURS TOPICAL PATCH TD SCH (09:26)
[2018-10-02] MEDS: NICOTINE POLACRILEX 4 MG GUM BUC PRN ×2 (09:27→14:01)
[2018-10-02] MEDS: QUEtiapine FUMARATE 200 MG TABLET PO SCH (21:44)
[2018-10-02] MEDS: MELATONIN 5 MG TABLETS PO PRN (21:45)
[2018-10-02] MEDS: THIAMINE HCL 100 MG TABLET (FP) PO SCH (21:46)
[2018-10-03] MEDS: hydrOXYzine PAMOATE 50 MG CAPSULE (FP) PO PRN ×3 (06:53→21:52)
[2018-10-03] MEDS: GABAPENTIN 300 MG CAPSULE (FP) PO SCH ×3 (06:54→21:52)
[2018-10-03] MEDS: FERROUS SO4 325 MG TABLET (FP) PO SCH ×2 (07:04→17:30)
[2018-10-03] MEDS: PRENATAL VITAMINS W/ FOLIC ACID TABLET (FP) PO SCH (09:59)
[2018-10-03] MEDS: NICOTINE POLACRILEX 4 MG GUM BUC PRN ×2 (09:59→14:09)
[2018-10-03] MEDS: NICOTINE 21 MG/24 HOURS TOPICAL PATCH TD SCH (09:59)
[2018-10-03] MEDS: THIAMINE HCL 100 MG TABLET (FP) PO SCH (21:52)
[2018-10-03] MEDS: QUEtiapine FUMARATE 200 MG TABLET PO SCH (21:52)
[2018-10-04] MEDS: GABAPENTIN 300 MG CAPSULE (FP) PO SCH ×3 (06:38→21:26)
[2018-10-04] MEDS: hydrOXYzine PAMOATE 50 MG CAPSULE (FP) PO PRN ×3 (06:38→21:26)
[2018-10-04] MEDS: FERROUS SO4 325 MG TABLET (FP) PO SCH ×2 (07:56→17:30)
[2018-10-04] MEDS: NICOTINE 21 MG/24 HOURS TOPICAL PATCH TD SCH (09:23)
[2018-10-04] MEDS: PRENATAL VITAMINS W/ FOLIC ACID TABLET (FP) PO SCH (09:23)
[2018-10-04] MEDS: NICOTINE POLACRILEX 4 MG GUM BUC PRN (09:24)
[2018-10-04] MEDS: THIAMINE HCL 100 MG TABLET (FP) PO SCH (21:25)
[2018-10-04] MEDS: MELATONIN 5 MG TABLETS PO PRN (21:27)
[2018-10-04] MEDS: QUEtiapine FUMARATE 200 MG TABLET PO SCH (21:27)
[2018-10-05] MEDS: hydrOXYzine PAMOATE 50 MG CAPSULE (FP) PO PRN ×2 (06:28→21:31)
[2018-10-05] MEDS: GABAPENTIN 300 MG CAPSULE (FP) PO SCH ×3 (06:28→21:32)
[2018-10-05] MEDS: FERROUS SO4 325 MG TABLET (FP) PO SCH ×2 (07:04→17:30)
[2018-10-05] MEDS: NICOTINE 21 MG/24 HOURS TOPICAL PATCH TD SCH (09:42)
[2018-10-05] MEDS: PRENATAL VITAMINS W/ FOLIC ACID TABLET (FP) PO SCH (09:42)
[2018-10-05] MEDS: NICOTINE POLACRILEX 4 MG GUM BUC PRN ×2 (09:43→13:04)
--- NOTE | 2018-10-05 17:26 | PN ---
Psychiatric Progress Note Vital Signs: Vital Signs Period Temp Pulse Resp BP Sys/Garnica Pulse Ox Last 24 Hr 97.7 F 82 18-18 108/71 Date of Session: 10/05/18 Chief Complaint:: " i'm not sleeping well." HPI: Patient admitted to [facility] for alcohol, marijuana and cocaine dependence comorbid Bipolar disorder. ROS: Patient is coherent, alert and oriented X3. Current Medications: Active Medications Generic Name Dose Route Start Last Admin Trade Name Freq PRN Reason Stop Dose Admin Acetaminophen 650 mg 09/14/18 20:17 Tylenol - PO Q4H PRN FEVER Al Hydroxide/Mg Hydroxide 30 ml 09/14/18 20:17 Mylanta Oral Suspension - PO Q6H PRN DYSPEPSIA Colloidal Oatmeal 1 applic 09/19/18 11:23 09/19/18 17:45 Aveeno Soap - TP 1 applic DAILY PRN Administration HYGEINE Eucalyptus/Menthol/Phenol/Sorbitol 1 each 09/14/18 20:17 Cepastat Lozenge - MM Q4H PRN SORE THROAT Ferrous Sulfate 325 mg 09/18/18 17:30 10/05/18 07:04 Feosol - PO 325 mg BIDWM VIOLET Administration Gabapentin 300 mg 09/21/18 14:00 10/05/18 13:46 Neurontin - PO 300 mg TID VIOLET Administration Guaifenesin 10 ml 09/14/18 20:17 Robitussin - PO Q6H PRN COUGH Hydroxyzine Pamoate 50 mg 09/16/18 11:03 10/05/18 06:28 Vistaril - PO 50 mg Q4H PRN Administration AGITATION Ibuprofen 400 mg 09/14/18 20:17 09/21/18 09:04 Motrin - PO 400 mg Q6H PRN Administration Pain level 4-6 Loperamide HCl 4 mg 09/14/18 20:17 Imodium - PO Q6H PRN DIARRHEA Magnesium Citrate 300 ml 09/14/18 20:17 Citroma - PO Q48H PRN CONSTIPATION Magnesium Hydroxide 30 ml 09/14/18 20:17 Milk Of Magnesia - PO DAILY PRN CONSTIPATION Melatonin 5 mg 09/14/18 22:00 10/04/18 21:27 Melatonin PO 5 mg HS PRN Administration INSOMNIA Nicotine 21 mg 09/20/18 10:00 10/05/18 09:42 Nicoderm Patch - TD 21 mg DAILY VIOLET Administration Nicotine Polacrilex 4 mg 09/20/18 10:32 10/05/18 13:04 Nicorette Gum - BUC 4 mg Q2H PRN Administration NICOTINE REPLACEMENT RX Multivit/Folic Acid/Iron 1 tab 09/15/18 10:00 10/05/18 09:42 Vitamins (Sjr) - PO 1 tab DAILY VIOLET Administration Pseudoephedrine/Triprolidine 1 combo 09/14/18 20:17 Actifed - PO TID PRN NASAL CONGESTION Quetiapine Fumarate 200 mg 09/16/18 22:00 10/04/18 21:27 Seroquel - PO 200 mg HS VIOLET Administration Thiamine HCl 100 mg 09/14/18 22:00 10/04/18 21:25 Vitamin B1 - PO 100 mg HS VIOLET Administration Medication(s) Change(s): Yes. Current Side Effect: No Lab tests ordered: No Lab tests reviewed: Yes Provider note:: Patient reports poor sleep. Patient in agreement in accepting Belsomra 10mg HS prn. Patient educated on the importance of sleep hygiene. Benefits and side effects discussed. Verbal consent given. Total face to face time:: 15 Mental Status Exam - Mental Status Exam Alert and Oriented to: Time, Place, Person Cognitive Function: Good Patient Appearance: Well Groomed Mood: Euthymic Affect: Mood Congruent Patient Behavior: Cooperative Speech Pattern: Appropriate Voice Loudness: Normal Thought Process: Goal Oriented Thought Disorder: Not Present Hallucinations: Denies Suicidal Ideation: Denies Homicidal Ideation: Denies Insight/Judgement: Poor Sleep: Poorly Appetite: Fair Muscle strength/Tone: Normal Gait/Station: Normal Psychiatric Treatment Plan - Problem List (1) Substance induced mood disorder Current Visit: Yes (2) Severe alcohol use disorder, in early remission Current Visit: Yes (3) Cannabis dependence, uncomplicated Current Visit: Yes (4) Cocaine dependence, uncomplicated Current Visit: Yes (5) Bipolar disorder Current Visit: Yes (6) Schizoaffective disorder Current Visit: Yes (7) Substance-induced sleep disorder Current Visit: Yes
[2018-10-05] MEDS: THIAMINE HCL 100 MG TABLET (FP) PO SCH (21:31)
[2018-10-05] MEDS: SUVOREXANT 10 MG TABLET PO PRN (21:32)
[2018-10-05] MEDS: QUEtiapine FUMARATE 200 MG TABLET PO SCH (21:32)
[2018-10-06] MEDS: GABAPENTIN 300 MG CAPSULE (FP) PO SCH ×3 (06:19→21:12)
[2018-10-06] MEDS: hydrOXYzine PAMOATE 50 MG CAPSULE (FP) PO PRN ×3 (06:19→21:14)
[2018-10-06] MEDS: FERROUS SO4 325 MG TABLET (FP) PO SCH ×2 (07:12→16:55)
[2018-10-06] MEDS: PRENATAL VITAMINS W/ FOLIC ACID TABLET (FP) PO SCH (10:01)
[2018-10-06] MEDS: NICOTINE POLACRILEX 4 MG GUM BUC PRN ×2 (10:01→13:30)
[2018-10-06] MEDS: NICOTINE 21 MG/24 HOURS TOPICAL PATCH TD SCH (10:01)
[2018-10-06] MEDS: QUEtiapine FUMARATE 200 MG TABLET PO SCH (21:12)
[2018-10-06] MEDS: THIAMINE HCL 100 MG TABLET (FP) PO SCH (21:12)
[2018-10-06] MEDS: SUVOREXANT 10 MG TABLET PO PRN (21:13)
[2018-10-07] MEDS: GABAPENTIN 300 MG CAPSULE (FP) PO SCH ×3 (06:49→21:24)
[2018-10-07] MEDS: hydrOXYzine PAMOATE 50 MG CAPSULE (FP) PO PRN ×3 (06:49→21:24)
[2018-10-07] MEDS: FERROUS SO4 325 MG TABLET (FP) PO SCH ×2 (07:41→17:35)
[2018-10-07] MEDS: PRENATAL VITAMINS W/ FOLIC ACID TABLET (FP) PO SCH (11:00)
[2018-10-07] MEDS: NICOTINE 21 MG/24 HOURS TOPICAL PATCH TD SCH (11:00)
[2018-10-07] MEDS: NICOTINE POLACRILEX 4 MG GUM BUC PRN (13:45)
[2018-10-07] MEDS: MELATONIN 5 MG TABLETS PO PRN (21:24)
[2018-10-07] MEDS: QUEtiapine FUMARATE 200 MG TABLET PO SCH (21:24)
[2018-10-07] MEDS: SUVOREXANT 10 MG TABLET PO PRN (21:26)
[2018-10-07] MEDS: THIAMINE HCL 100 MG TABLET (FP) PO SCH (21:27)
[2018-10-08] MEDS: FERROUS SO4 325 MG TABLET (FP) PO SCH ×2 (07:05→17:15)
[2018-10-08] MEDS: GABAPENTIN 300 MG CAPSULE (FP) PO SCH ×3 (07:06→21:15)
[2018-10-08] MEDS: PRENATAL VITAMINS W/ FOLIC ACID TABLET (FP) PO SCH (10:10)
[2018-10-08] MEDS: NICOTINE 21 MG/24 HOURS TOPICAL PATCH TD SCH (10:10)
[2018-10-08] MEDS: hydrOXYzine PAMOATE 50 MG CAPSULE (FP) PO PRN ×2 (13:46→21:15)
[2018-10-08] MEDS: NICOTINE POLACRILEX 4 MG GUM BUC PRN (13:46)
--- NOTE | 2018-10-08 14:43 | PN ---
[facility] Progress Note Note: Psychiatric nurse practitioner note: Belsomra 10mg renewed X3 days. Verbal consent given.
[2018-10-08] MEDS: MELATONIN 5 MG TABLETS PO PRN (21:13)
[2018-10-08] MEDS: THIAMINE HCL 100 MG TABLET (FP) PO SCH (21:13)
[2018-10-08] MEDS: QUEtiapine FUMARATE 200 MG TABLET PO SCH (21:15)
[2018-10-08] MEDS: SUVOREXANT 10 MG TABLET PO PRN (21:16)
[2018-10-09] MEDS: hydrOXYzine PAMOATE 50 MG CAPSULE (FP) PO PRN ×3 (06:33→21:13)
[2018-10-09] MEDS: GABAPENTIN 300 MG CAPSULE (FP) PO SCH ×3 (06:33→21:13)
[2018-10-09] MEDS: FERROUS SO4 325 MG TABLET (FP) PO SCH ×2 (08:30→17:35)
[2018-10-09] MEDS: NICOTINE 21 MG/24 HOURS TOPICAL PATCH TD SCH (10:11)
[2018-10-09] MEDS: PRENATAL VITAMINS W/ FOLIC ACID TABLET (FP) PO SCH (10:11)
[2018-10-09] MEDS: THIAMINE HCL 100 MG TABLET (FP) PO SCH (21:12)
[2018-10-09] MEDS: MELATONIN 5 MG TABLETS PO PRN (21:12)
[2018-10-09] MEDS: QUEtiapine FUMARATE 200 MG TABLET PO SCH (21:13)
[2018-10-09] MEDS: SUVOREXANT 10 MG TABLET PO PRN (21:15)
[2018-10-10] MEDS: GABAPENTIN 300 MG CAPSULE (FP) PO SCH ×3 (06:28→22:10)
[2018-10-10] MEDS: hydrOXYzine PAMOATE 50 MG CAPSULE (FP) PO PRN ×3 (06:28→22:11)
[2018-10-10] MEDS: FERROUS SO4 325 MG TABLET (FP) PO SCH ×2 (07:33→17:21)
[2018-10-10] MEDS: NICOTINE 21 MG/24 HOURS TOPICAL PATCH TD SCH (09:57)
[2018-10-10] MEDS: PRENATAL VITAMINS W/ FOLIC ACID TABLET (FP) PO SCH (09:58)
[2018-10-10] MEDS: NICOTINE POLACRILEX 4 MG GUM BUC PRN ×2 (13:41→18:31)
--- NOTE | 2018-10-10 16:14 | PN ---
[facility] Progress Note Note: Psychiatric nurse practitioner note: Belsomra 10mg renewed X3. days. Verbal consent given.
[2018-10-10] MEDS: THIAMINE HCL 100 MG TABLET (FP) PO SCH (22:10)
[2018-10-10] MEDS: QUEtiapine FUMARATE 200 MG TABLET PO SCH (22:10)
[2018-10-10] MEDS: SUVOREXANT 10 MG TABLET PO PRN (22:10)
[2018-10-11] MEDS: GABAPENTIN 300 MG CAPSULE (FP) PO SCH ×3 (06:07→22:02)
[2018-10-11] MEDS: hydrOXYzine PAMOATE 50 MG CAPSULE (FP) PO PRN ×2 (06:07→13:56)
[2018-10-11] MEDS: FERROUS SO4 325 MG TABLET (FP) PO SCH ×2 (08:18→17:20)
--- NOTE | 2018-10-11 10:21 | PN ---
[facility] Progress Note (SOAP) Subjective: patient to be discharged tomorrow. Hospital Course: patient attended groups, had 1:1 session with counselor, was evaluated by psychiatric provider, and was adherent to the treatment and medication plan. She had no acute or emergent medical issues while in rehab. Objective: Physical General Appearance: NHo apparent distress HEENTM: EOMI, Normocephalic, MACK, Respiratory:Lungs Clear No Respiratory Distress Neck: Supple Cardiology:Regular Rhythm & Rate, S1, S2 Abdominal: Non Tender, Soft, Hernia +BS Musculoskeletal: full range of Motion, full weight bearing, Gait Steady Neurological: front end engineer II-XIIintact, Motor Strength 5/5 Integumentary: Color consistent throughout trunk and extremities, Dry, Warm Lymphatic: No palpable lymph nodes 10/11/18 10:18 CBC, BMP 09/15/18 08:15 09/15/18 08:15 Vital Signs (72 hours) 10/09/18 10/09/18 10/09/18 00:30 03:30 07:22 Temperature 98.6 F Pulse Rate 92 H Respiratory 16 16 18 Rate Blood Pressure 113/78 10/10/18 10/10/18 10/11/18 00:30 06:51 03:30 Temperature 97.7 F Pulse Rate 72 Respiratory 18 18 18 Rate Blood Pressure 98/59 L 10/11/18 07:11 Temperature 97.8 F Pulse Rate 80 Respiratory 18 Rate Blood Pressure 116/68 Assessment: Medically stable for discharge Discharge Dx: ETOH dependence Cannabis dependence Cocaine Dependence 10/11/18 10:24 Plan: On-going continuation of care: patient will obtain housing at [facility], She will receive medical care and substance abuse treatment at [facility]. Patient did not need prescriptions transmitted to her pharmacy.
[2018-10-11] MEDS: NICOTINE 21 MG/24 HOURS TOPICAL PATCH TD SCH (10:25)
[2018-10-11] MEDS: PRENATAL VITAMINS W/ FOLIC ACID TABLET (FP) PO SCH (10:25)
[2018-10-11] MEDS: NICOTINE POLACRILEX 4 MG GUM BUC PRN (13:57)
--- NOTE | 2018-10-11 18:54 | PN ---
[facility] Progress Note Note: Patient is scheduled for discharge tomorrow. Script for 30 days supply of medications(Gabapentin 300 mg/tid, Seroquel 200 mg/hs) will be electronically transmitted to [facility] at [address] [place] [address]
[2018-10-11] MEDS: THIAMINE HCL 100 MG TABLET (FP) PO SCH (22:01)
[2018-10-11] MEDS: MELATONIN 5 MG TABLETS PO PRN (22:01)
[2018-10-11] MEDS: QUEtiapine FUMARATE 200 MG TABLET PO SCH (22:02)
[2018-10-11] MEDS: SUVOREXANT 10 MG TABLET PO PRN (22:03)
[2018-10-12] MEDS: GABAPENTIN 300 MG CAPSULE (FP) PO SCH (06:57)
[2018-10-12] MEDS: hydrOXYzine PAMOATE 50 MG CAPSULE (FP) PO PRN (06:57)
[2018-10-12] MEDS: FERROUS SO4 325 MG TABLET (FP) PO SCH (07:03)
[2018-10-12 07:16] VITALS: BP 118/86; PULSE 93; TEMP 98.4
== END 2018-10-12 08:38 | disposition home or self-care (01) | DRG 772 ==
LOC: YASAS 16:04 → Y3E 20:20
PROVIDERS: ADMIT Neuromusculoskeletal Medicine & OMM; ATTEND Neuromusculoskeletal Medicine & OMM
PROC: HZ42ZZZ Group Counseling for Substance Abuse Treatment, Cognitive-Behavioral (ICD-10-PCS; principal; 2018-09-14)
DX: F10.20 Alcohol dependence, uncomplicated (principal); F14.20 Cocaine dependence, uncomplicated; F12.20 Cannabis dependence, uncomplicated; F17.210 Nicotine dependence, cigarettes, uncomplicated; F19.282 Other psychoactive substance dependence with psychoactive substance-induced sleep disorder; F19.24 Other psychoactive substance dependence with psychoactive substance-induced mood disorder; F31.9 Bipolar disorder, unspecified; F25.9 Schizoaffective disorder, unspecified; L25.9 Unspecified contact dermatitis, unspecified cause; K46.9 Unspecified abdominal hernia without obstruction or gangrene; Z59.0 Homelessness
CPT/HCPCS: 36415; 71046-TC-FY; 80053; 81003; 81025; 85027; 86593; 87389; 93005; 93010